=== PATIENT | male | born 1960 | race Caucasian/White ===

== ENCOUNTER 2019-07-14 12:00 | Emergency (ER) | payer OTHER, SELFPAY ==
[2019-07-14 12:02] VITALS: BP 132/82; PULSE 63; RESP 17; TEMP 36.1; O2SAT 99; BMI 26.1
--- NOTE | 2019-07-14 13:11 | ED.RN ---
MULTIPLE ATTEMPTS MADE TO ED ([phone]), PT'S BOSS TO SEE IF A DRUG TEST IS REQUIRED, UNABLE TO LEAVE VOICEMAIL AT HIS NUMBER.
--- NOTE | 2019-07-14 13:17 | ED.DCSUM_ITS ---
History of Present Illness Chief Complaint: Laceration Informant: Patient Occurred: Today Mechanism/Context: Injury, Work Related Onset: Today Context: Sudden Onset Narrative: Patient is a 58-year-old [id number] male presenting with laceration to his left hand. Patient was operating of heavy duty drill when the drill bit got stuck and then the hole drill started to rotate. He was trying to control the drill and the drill bit cut his left hand. Patient sustained a laceration to his hand near the webbing of his thumb. He is not sure his last tetanus was. Earlier today he also hit his hand against a rock and sustained an abrasion to the back of his left hand. He denies any associated numbness or tingling. This is a Workmen's Compensation injury. He denies any other injuries or any other complaints at this time. Patient notes he is currently on antibiotics for an ear infection. He does not know the name of the antibiotics. Tetanus Immunization: Unknown Past Medical History - Allergies and Home Meds Allergies/Adverse Reactions: Allergies No Known Allergies Allergy (Verified 07/14/19 12:01) [facility] - Past Medical History: None Surgical History: noncontributory Smoking Status: Never smoker Review of Systems General: Denies: Chills, Fever, Sweats Eyes: Denies: Visual changes - bilaterally, Diplopia ENT: Reports: - - Ear congestion. Denies: Bilateral ear pain, Rhinorrhea, Sore throat Cardiovascular: Denies: Chest pain, Palpitations Respiratory: Denies: Dyspnea, Cough, Dyspnea on exertion Genitourinary: Denies: Dysuria, Hematuria, Frequency Musculoskeletal: Reports: Extremity Pain - Left hand pain. Denies: Back pain Skin: Reports: Wounds - Left hand. Denies: Rash Neurological: Denies: Headache, Weakness, Numbness Physical Exam Vital Signs/Narrative: Vital Signs Temp Pulse Resp BP Pulse Ox 07/14/19 12:02 97.0 F L 63 17 132/82 H 99 Inital Vital Signs reviewed: Yes Left Wrist: Negative for: Abrasion, Contusion, Deformity, Edema, Limited ROM Right Hand: - Left Hand: Abrasion - 2 cm dorsal aspect of the hand proximal to the third MCP, - - Full-thickness laceration 3 cm in length and irregular, linear in the webbing between the first and second fingers. Negative for: Contusion, Deformity, Hematoma, Limited ROM Left Finger: Negative for: Deformity, Limited ROM General: Well nourished, Well developed Head: Normocephalic, Atraumatic Eyes: Perrl, EOMI ENT: No Trauma, Moist Mucous Membranes, - - Air-fluid level noted behind the left panic membrane, no erythema or bulging of the TM Neck: Nontender, Full ROM Cardiovascular: Regular rate, Regular rhythm, No murmurs Respiratory: No distress, CTA bilaterally, Chest nontender Back: Nontender Skin: Normal color, No rash, Trauma - See above-left hand laceration Neurological: Alert, Oriented x3, Cranial nerves II-XII grossly intact, Normal Strength, Normal Sensation Psychological: Normal affect Diagnostic/Tx/Re-eval - Medical Decision Making Patient is evaluated for laceration to his left hand. He is right-hand dominant. Tetanus is updated. Patient does not have any obvious foreign bodies. Laceration repair was performed. See procedure note. Patient tolerated this well. He is counseled on wound care. Patient is counseled on signs and symptoms requiring return to the emergency room. Patient verbalizes agreement and understand this plan. Patient discharged home in stable and improved condition. Procedures - Lacerations No standard instances Length: 1.18 in Depth: Sub Q Shape: Linear Prep: Sterile Conditions, Chlorhexadine Laceration Repair: Lidocaine with epi, Local, Sutures, Wound explored Irrigated (ml): 999 - running water 5 minutes Number of Sutures/Dolly: 5 Suture Information: Ethilon, 4-0 ED Disposition - Plan for ED Patient: Disposition: Home or Assisted Living Diagnosis: Laceration of left hand Instructions: LACERATION, Hand Prescriptions: Ibuprofen [Motrin] 600 mg PO Q6H PRN PRN #20 tab PRN Reason: pain Prescription Printed Referrals: [facility] [GROUP OF PHYSICIANS] - Additional Instructions: Follow-up with occupational medicine for your PCP for suture removal in 10 to 14 days.
[2019-07-14] MEDS: Ibuprofen 600 MG Tablet PO (14:14)
[2019-07-14] MEDS: Diphth,Pertuss(Acell),Tet Vac 0.5 ML Vial IM (14:15)
--- NOTE | 2019-07-14 14:51 | ED.RN ---
PT ENRIQUE CALLED IN TO CONFIRM THAT PT DOES NOT REQUIRE A DRUG TEST
== END 2019-07-14 15:31 | disposition home or self-care (01) ==
PROVIDERS: Emergency Provider Emergency Medicine
DX: S61.412A Laceration without foreign body of left hand, initial encounter (principal); S60.512A Abrasion of left hand, initial encounter; W29.8XXA Contact with other powered hand tools and household machinery, initial encounter; W22.8XXA Striking against or struck by other objects, initial encounter; Y93.9 Activity, unspecified; Y92.9 Unspecified place or not applicable; H66.90 Otitis media, unspecified, unspecified ear
CPT/HCPCS: 12002; 90471; 90715; 99283